=== PATIENT | female | born 1950 | race Caucasian/White ===

== ENCOUNTER 2024-08-29 14:33 | Emergency (ER) | payer MEDICARE, BC, SELFPAY ==
--- NOTE | 2024-08-29 14:55 | PC.NURSE ---
no answer in lobby when called for vital signs and to see provider
--- NOTE | 2024-08-29 15:04 | PC.NURSE ---
no answer in lobby when called for vital signs and to see provider
--- NOTE | 2024-08-29 15:05 | PC.NURSE ---
no answer in lobby when called for vital signs and to see provider
[2024-08-29 15:15] VITALS: BP 135/72; PULSE 60; RESP 18; TEMP 37.1; O2SAT 99; BMI 30.1
--- NOTE | 2024-08-29 15:23 | EKG_ITS ---
[facility] Test Date: 2024-08-29 Pat Name: ORVILLE SOUZA Department: Room: - Gender: Female Hospital Clinic Assistant: : 1950 Requested By: Pramod Mahmood Order Number: [id number] Reading MD: Pramod Mahmood Measurements Intervals [place] Rate: 50 P: 48 MI: 184 QRS: -50 QRSD: 119 T: 15 QT: 466 QTc: 426 Interpretive Statements SINUS BRADYCARDIA POSSIBLE LEFT ATRIAL ENLARGEMENT [-0.1mV P-WAVE IN V1/V2] PATTERN CONSISTENT WITH PULMONARY DISEASE LEFT ANTERIOR FASCICULAR BLOCK [QRS AXIS <= -45, QR IN I, RS IN II] POSSIBLE LEFT VENTRICULAR HYPERTROPHY [VOLTAGE CRITERIA PLUS LAE OR QRS WIDENING] Compared to ECG 05/26/2023 11:11:58 Left anterior fascicular block now present Left-axis deviation no longer present /store/S0/[id number]
--- NOTE | 2024-08-29 15:23 | XR_ITS ---
Examination: CT brain head without contrast. 2-D sagittal coronal reconstructions Date and time of exam:August 29, 2024 1531 hours Comparison May 26, 2023 INDICATIONS: Dizziness syncopal episode lower extremity weakness beginning 2 days ago CTDI: vol (mGy):48.9 DLP: (mGycm):1020 Technique: Multiple CT axial sections of the brain have been obtained, 5 mm slice thickness. Contrast has not been administered. 2-D sagittal, coronal reconstructions have been obtained Low dose protocols were performed. One or more of the following dose reduction techniques were used; automated exposure control, adjustment of the mA and/or KV according to patient size, use of iterative reconstruction technique. Findings: No significant ventricular enlargement Stable bilateral Virchow spaces. Intra-axial or extra-axial hemorrhage density is not seen. No mass effect or midline shift Basal cisterns are not remarkable. Fourth ventricle is midline. Cranial vault intact. Impression: Negative for acute hemorrhage, mass effect or midline shift As clinically warranted, brain MRI follow-up would best assess for acute ischemic change
--- NOTE | 2024-08-29 15:24 | PD.EDRME ---
Rapid Medical Screening Exam [facility] Arrival date/time: 08/29/24 14:33 74-year-old female with a history of hypertension, presents to the emergency room with a chief complaint of left-sided weakness left-sided facial droop headache x 2 days. I have greeted and performed a focused initial assessment of this patient. A comprehensive ED assessment and evaluation of the patient, analysis of all test results, and completion of the medical decision making process will be conducted by additional ED providers. Chief Complaint: Weakness Time Seen by Provider: 08/29/24 15:00 Vital signs: Vital Signs Temperature 98.8 F 08/29/24 15:15 Pulse Rate 60 08/29/24 15:15 Respiratory Rate 18 08/29/24 15:15 Blood Pressure 135/72 H 08/29/24 15:15 Pulse Oximetry (%) 99 08/29/24 15:15 Oxygen Delivery Method Room Air 08/29/24 15:15 Vital signs reviewed by provider: Yes
[2024-08-29 15:49] LABS: Basophils % (Auto) 1 % (0-2.5); Eosinophils # (Auto) 0.2 Thou/mm3 (0.0-0.5); Eosinophils % (Auto) 3 % (0-10); Hematocrit 32.5 % (36.0-46.0); Hemoglobin 10.9 g/dL (12.0-16.0); Immature Granulocytes % (Auto) 0 % (0-0); Immature Granulocytes Auto 0.02 Thou/mm3 (0.00-0.00); Lymphocytes # (Auto) 1.8 Thou/mm3 (1.0-4.8); Lymphocytes % (Auto) 26 % (10-50); Mean Corpuscular HGB Conc 33.5 g/dl (31.0-37.0); Mean Corpuscular Hemoglobin 30.6 pg (25.0-35.0); Mean Corpuscular Volume 91 fL (80-100); Monocytes # (Auto) 0.7 Thou/mm3 (0.0-0.8); Monocytes % (Auto) 9 % (0-12); Neutrophils # (Auto) 4.2 Thou/mm3 (1.8-7.7); Neutrophils % (Auto) 61 % (37-80); Nucleated Red Blood Cell % 0 /100 WBC (0); Platelet Count 253 Thou/mm3 (140-440); RDW Standard Deviation 49.7 fL (36.4-46.3); Red Blood Count 3.56 Miln/mm3 (4.00-5.20); White Blood Count 6.9 Thou/mm3 (3.6-11.0)
[2024-08-29 16:19] LABS: B-Type Natriuretic Peptide 105 pg/mL (0-100)
[2024-08-29 16:24] LABS: Alanine Aminotransferase 15 U/L (10-49); Albumin/Globulin Ratio 1.7 (1.2-2.2); Alkaline Phosphatase 117 U/L (46-116); Anion Gap 5 (7-16); Aspartate Amino Transferase 21 U/L (0-34); BUN/Creatinine Ratio 25 Ratio (12-20); Bilirubin,Total 0.2 mg/dL (0.3-1.2); Blood Urea Nitrogen 25 mg/dL (9-23); Chloride 107 mMol/L (98-107); Estimated Creatinine Clearance 49.3 mL/min (>60); Globulin 2.4 gm/dL (2.3-3.5); Glucose 94 mg/dL (74-106); Osmolality,Calculated 287 (275-295); Potassium 3.9 mMol/L (3.4-5.1); Sodium 142 mMol/L (136-145); Total Protein 6.4 gm/dL (5.7-8.2); Troponin I < 0.020 ng/mL (0.0-0.045); eGFR 59 See Note
--- NOTE | 2024-08-29 16:39 | PD.EDWEAK ---
ED Weakness RME/HPI General Chief complaint: Weakness Stated complaint: EQUILIBRIUM OFF, LEFT FACE TINGLING, HARD TO WALK Time Seen by Provider: 08/29/24 15:00 Arrival date/time: 08/29/24 14:33 Limitations: no limitations RME / HPI RME / HPI Narrative: 08/29/24 14:33 74-year-old female with a history of hypertension, presents to the emergency room with a chief complaint of left-sided weakness left-sided facial droop headache x 2 days. I have greeted and performed a focused initial assessment of this patient. A comprehensive ED assessment and evaluation of the patient, analysis of all test results, and completion of the medical decision making process will be conducted by additional ED providers. DR. SILVA MAIN ED EVALUATION: 74 year old female with history of hypertension and TIA 10 years ago presents to the ED for evaluation of left lower extremity weakness beginning at 04:00 AM yesterday. States she noted the weakness in her leg while walking to the restroom and remaining constant since. Accompanied by her gait feeling off and left facial numbness. Denies headache, change in speech, change in vision, or change in memory. Denies fevers, chills, chest pain, cough, shortness of breath, abdominal pain, n/v/d, or urinary symptoms. Patient mentioned she took three baby Aspirin today. Patient additionally reports she has been told by her neurologist Dr. Grant she has early onset of vascular dementia. Related Data Home Medications ?Medication ?Instructions ?Recorded ?Confirmed duloxetine 60 mg capsule,delayed 60 mg PO QDAY 09/06/18 07/30/24 release (Cymbalta) losartan 100 mg tablet 100 mg PO QDAY 06/18/19 07/30/24 clonidine HCl 0.1 mg tablet 0.1 mg PO BID 06/24/20 07/30/24 aspirin 325 mg tablet 325 mg PO QDAY 07/14/20 07/30/24 diltiazem HCl 180 mg 180 mg PO QDAY 07/14/20 07/30/24 capsule,extended release 24 hr estradiol 0.01% (0.1 mg/gram) 2 g vaginal DIRECTED 11/05/21 07/30/24 vaginal cream (Estrace) oxybutynin chloride 10 mg 10 mg PO QDAY 11/05/21 07/30/24 tablet,extended release 24 hr hydralazine 50 mg tablet mg 02/24/22 07/30/24 Allergies Allergy/AdvReac Type Severity Reaction Status Date / Time No Known Allergies Allergy Verified 08/29/24 14:37 Review of Systems Review of Systems Narrative Review of Systems: GEN: No fever, no chills, no weight loss EYES: No discharge, no visual changes, no pain HEENT: No ear pain, no congestion, no sore throat PULM: No shortness of breath, no cough, no congestion CV: No chest pain, no dyspnea on exertion, no palpitations GI: No nausea, no vomiting, no diarrhea, no pain, no constipation : No frequency, no urgency, no dysuria MUSC/SKEL: No joint pain, no back pain SKIN: No rash PSYCH: No hallucinations, no depression HEME/LYMPH: No easy bleeding or bruising tendencies NEURO: +left lower extremity weakness, +gait feeling off , no headache Past Medical History Past Medical History NEUROLOGIC: Negative Seizures CARDIAC: Positive Hypertension; Negative Congestive Heart Failure RESPIRATORY: Negative Chronic Obstructive Pulmonary Disease (COPD) GENITOURINARY: Negative Renal Disease ENDOCRINE: Negative Diabetes Mellitus Type 1 or Diabetes Mellitus Type 2 OTHER HISTORY: Negative Blood Transfusions or Anesthesia Reactions Surgical History SURGICAL: Positive Gastric Bypass Surgery and Hysterectomy Social History SMOKING STATUS: Never smoker SUBSTANCE USE: does not use ED Exam General Limitations: Present no limitations General appearance: Present alert and in no apparent distress Head Head exam: Present atraumatic, normocephalic and normal inspection Eye Eye exam: Present normal appearance, PERRL and EOMI ENT ENT exam: Present normal exam, normal oropharynx and mucous membranes moist Neck Neck exam: Present normal inspection, full ROM and trachea midline Chest Chest inspection: Present normal inspection and symmetric chest wall rise Respiratory Respiratory exam: Present normal lung sounds bilaterally Cardiovascular Cardiovascular exam: Present regular rate, normal rhythm and normal heart sounds Abdominal Exam Abdominal exam: Present soft and normal bowel sounds Extremities Exam Extremities exam: Present normal inspection and full ROM Back Exam Back exam: Present normal inspection and full ROM Neurological Exam Neurological exam: Present alert, oriented X3 and CN II-XII intact Psychiatric Psychiatric exam: Present normal affect and normal mood Skin Skin exam: Present warm, dry, intact and normal color Course Quality Measures none Orders Category Date Time Status Bedside Blood Glucose NOW Care 08/29/24 17:[address] Screening NOW Care 08/29/24 17:[address] Screening NOW Care 08/29/24 18:19 Completed Library Consultant NOW Care 08/29/24 17:56 Completed Continuous Pulse Oximetry NOW Care 08/29/24 17:56 Completed EKG (ED ONLY) *Do not use* NOW Care 08/29/24 15:23 Completed Insert IV NOW Care 08/29/24 17:56 Completed NIH Stroke Scale now Care 08/29/24 17:56 Completed NPO NOW Care 08/29/24 17:56 Completed Neuro Check Q15MIN Care 08/29/24 17:56 Completed Nurse Swallow Screen x1 Care 08/29/24 17:56 Completed Consult to Neurology / Tele-Neurology Routine Cons 08/29/24 17:[address] angio carotid w head w Stat Exams 08/29/24 18:[address] head/brain wo con Stat Exams 08/29/24 15:23 Completed EKG (ED Only) Stat Exams 08/29/24 15:23 Ordered Alcohol, Blood Medical Stat Lab 08/29/24 15:40 Completed BNP [B-Type Natriuretic Peptide] Stat Lab 08/29/24 15:40 Completed CBC Stat Lab 08/29/24 15:40 Completed Comprehensive Metabolic Panel Stat Lab 08/29/24 15:40 Completed Magnesium Stat Lab 08/29/24 15:40 Completed Partial Thromboplastin Time Stat Lab 08/29/24 15:40 Completed Prothrombin Time with INR Stat Lab 08/29/24 15:40 Completed Troponin I Stat Lab 08/29/24 15:40 Completed Urinalysis Stat Lab 08/29/24 17:30 Completed Urine Culture Stat Lab 08/29/24 17:30 Received Ondansetron Inj [Zofran Inj] Med 08/29/24 17:56 Discontinued 4 mg IV Q4HR PRN Sodium Chloride 0.9% 1000 ml [Ns] 1,000 ml Med 08/29/24 18:00 Discontinued IV Q10H Oxygen Delivery NOW RT 08/29/24 17:56 Completed Vital Signs Vital signs: Vital Signs Temperature 98.8 F 08/29/24 15:15 Pulse Rate 60 08/29/24 15:15 Respiratory Rate 18 08/29/24 15:15 Blood Pressure 135/72 H 08/29/24 15:15 Pulse Oximetry (%) 99 08/29/24 15:15 Oxygen Delivery Method Room Air 08/29/24 15:15 Pulse ox is 99% on room air which is adequate. Weakness MDM Narrative MDM Narrative:: ITameka am scribing for and in the presence of Dr. Silva. Patient data External records reviewed:: [facility] previous records (I reviewed ED visit on 05/26/2023 ) Clinical information provided by:: patient Social determinants that could affect healthcare access:: none Patient has the following chronic illnesses:: HTN, TIA How is presenting disease/condition affected by chronic disease/condition?: exacerbated by Evaluation data The following diagnostics were reviewed and interpreted by me:: lab results and radiology exam(s) Lab and/or radiology exams considered but not ordered:: None Interpretation Summary: Ordering Physician: Pramod Tomas Date of Service: 08/29/24 Procedure(s): CT head/brain wo con Accession Number(s): [id number] cc: Pramod Tomas; Dagoberto Weiss MD~ Examination: CT brain head without contrast. 2-D sagittal coronal reconstructions Date and time of exam:August 29, 2024 1531 hours Comparison May 26, 2023 INDICATIONS: Dizziness syncopal episode lower extremity weakness beginning 2 days ago CTDI: vol (mGy):48.9 DLP: (mGycm):1020 Technique: Multiple CT axial sections of the brain have been obtained, 5 mm slice thickness. Contrast has not been administered. 2-D sagittal, coronal reconstructions have been obtained Low dose protocols were performed. One or more of the following dose reduction techniques were used; automated exposure control, adjustment of the mA and/or KV according to patient size, use of iterative reconstruction technique. Findings: No significant ventricular enlargement Stable bilateral Virchow spaces. Intra-axial or extra-axial hemorrhage density is not seen. No mass effect or midline shift Basal cisterns are not remarkable. Fourth ventricle is midline. Cranial vault intact. Impression: Negative for acute hemorrhage, mass effect or midline shift As clinically warranted, brain MRI follow-up would best assess for acute ischemic change Dictated By: Dagoberto Weiss MD Signed By: <Electronically signed by Dagoberto Weiss MD in OV> 08/29/24 1546 Medications / Prescriptions Medications or Prescriptions considered but not ordered:: None Medication administrations:: Medication Administration History Discontinued Medications Sodium Chloride (Ns) 1,000 mls @ 100 mls/hr IV Q10H KAY Stop: 09/28/24 17:59 Ondansetron HCl (Ondansetron Inj 2 Mg/Ml Inj 2 Ml) 4 mg IV Q4HR PRN PRN Reason: NAUSEA OR VOMITING Stop: 09/28/24 17:55 See above Consultations Consultation(s) initiated? (list below): No Diagnosis Weakness Differential Diagnosis: acute myocardial infarction, anemia, hypoglycemia, sepsis, dehydration and other (CVA, TIA ) Most likely diagnosis given after review of the tests above:: Weakness Admission Indicated Admission indicated?: not indicated Explain why admission is indicated or not indicated:: Patient signed out pending labs Admission Request Was there a request for admission?: No Disposition Plan Disposition Plan: other (specify) (Signed out to Dr. Huang pending labs ) Discharge Plan Plan Patient Disposition: HOME (Self Care) Prescriptions/Referrals Prescriptions/Med Rec: No Action losartan 100 mg tablet 100 mg PO QDAY aspirin 325 mg tablet 325 mg PO QDAY diltiazem HCl 180 mg capsule,extended release 24hr 180 mg PO QDAY oxybutynin chloride 10 mg tablet extended release 24hr 10 mg PO QDAY estradiol [Estrace] 0.01 % (0.1 mg/gram) cream 2 g vaginal DIRECTED Patient Comments: twice a week clonidine HCl 0.1 mg Tablet 0.1 mg PO BID duloxetine [Cymbalta] 60 mg Capsule,Delayed Release(Dr/Ec) 60 mg PO QDAY hydralazine 50 mg tablet Patient Comments: TAKE 1 TABLET BY MOUTH TWICE A DAY WITH FOOD Referrals: Pallavi Aldana NP [Primary Care Provider] - In 1 week Ed Grant MD [Physician] - 08/30/24 Problem List Clinical Impression: Dizziness Patient/Caregiver Discharge Instructions Education Materials: ED Dizziness, Uncertain Cause Additional Instructions: You can continue with your normal full dose aspirin. Dr. Grant would like to see you tomorrow with plans for an MRI. Her contact is provided in the discharge papers and contact office first thing in the morning for follow-up tomorrow. You can return to the emergency department sooner if symptoms worsen or if you notice any new, concerning issues. Print Language: Burkinan Stand Alone Forms: Fern Award Info., Patient Portal Info Letter
[2024-08-29 17:36] LABS: Collection Type, Urine Clean Catch
[2024-08-29 17:45] LABS: Bilirubin,Urine Negative (Negative); Blood,Urine Negative (Negative); Budding Yeast,Urine Present; Clarity,Urine Turbid (Clear/Hazy); Color,Urine Yellow (Lt Yel-Yel); Glucose, Urine Negative (Negative); Ketones,Urine Negative (Negative); Leukocyte Esterase,Urine Positive (Negative); Nitrite,Urine Negative (Negative); PH,Urine 5.5 (5.0-7.0); Protein,Urine Trace (Neg - Trace); RBC,Urine 4 /hpf (0-3); Specific Gravity,Urine 1.031 (1.001-1.035); Squamous Epithelial Cell,Urine 1 /hpf (0-5); WBC,Urine 5 /hpf (0-5)
[2024-08-29 18:21] LABS: INR 0.9 (0.9-1.3); Partial Thromboplastin Time 24.9 Seconds (22.0-36.0); Prothrombin Time 10.3 Seconds (9.0-12.2)
[2024-08-29 18:44] LABS: Alcohol, Blood Medical < 3.0 mg/dL (0-10.0); Magnesium 2.1 mg/dL (1.6-2.6)
[2024-08-29 19:45] VITALS: BP 165/78; PULSE 69; RESP 17; TEMP 36.8; O2SAT 97
--- NOTE | 2024-08-29 19:47 | PD.EDADDENDU ---
Emergency Room Addendum Addendum Narrative: 183: Care assumed from Dr. aGrcia, the previous shift emergency physician. Past medical, surgical, social and family history reviewed. Vitals and home medications reviewed. Results and treatment plan discussed. I will assume the care of the patient at this time and will follow the patient, pending labs. Please refer to the emergency department record for history and examination from initial visit. Labs are within normal limits. CT head is negative for any acute abnormalities. Patient states her weakness has improved. 2024: Discussed case with Dr. Grant from neurology regarding consultation. Discussed patients ED course, exam findings, labs, and radiology results. States to discharge the patient home and have the patient follow-up in her office tomorrow. Patient is agreeable with this plan and is stable to be discharged home.
== END 2024-08-29 21:00 | disposition home or self-care (01) ==
PROVIDERS: Family Medicine; Nurse Practitioner Family; Emergency Provider Emergency Medicine; PCP Nurse Practitioner Family
DX: R42 Dizziness and giddiness (principal); R00.1 Bradycardia, unspecified; I44.4 Left anterior fascicular block; I10 Essential (primary) hypertension; Z86.73 Personal history of transient ischemic attack (TIA), and cerebral infarction without residual deficits
CPT/HCPCS: 36415; 70450; 80053; 80320; 81001; 83735; 83880; 84484; 85025; 85610; 85730; 87086; 93005; 99285; G0480

== ENCOUNTER → 2024-09-02 | Outpatient (CLI) | payer MEDICARE, BC, SELFPAY ==
--- NOTE | 2024-09-02 17:00 | XR_ITS ---
Examination: MRI brain without intravenous contrast. Date and time of exam: September 02, 2024 at 1839 hours, comparison December 21, 2021 INDICATIONS: Onset weakness in the left leg ataxia beginning 5 days ago Technique: Multiple axial and sagittal images of the brain obtained. Siemens high-resolution 1.5 Huyen short bore scanners utilized. Sagittal sections, T1-weighted, TR 500, TE 14, are performed. Axial sections proton-density and T2-weighted have been obtained. Inversion recovery axial images, TR 9, 260, TE 111, TI 2500. Diffusion weighted images, axial sections, TR 4800, TE 128, B value 1000 Axial sections, ADC map, TR 4800, TE 128 Findings: Enlargement of the sella turcica is not present. The optic chiasm and infundibular are not remarkable. Prepontine and interpeduncular cisterns are not enlarged. There is no localized enlargement of the medulla or genet. Fourth ventricle and cerebellar tonsils appear normal in position. No subacute area of hemorrhage density is seen. Mass in the cerebellopontine angle region is not evident. Globes symmetrical. Orbital musculature including medial lateral rectus muscles do not exhibit abnormality. Diffusion-weighted images demonstrate 12 mm focus restricted diffusion right brainstem pontine level. Increased white matter signal prominent Mass effect upon the ventricular system is not identified. 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
== END | disposition home or self-care (01) ==
LOC: SMRI 16:29
PROVIDERS: PCP Nurse Practitioner Family; Referring Provider Psychiatry & Neurology Neurology; Visit Provider Psychiatry & Neurology Neurology
DX: I63.89 Other cerebral infarction (principal)
CPT/HCPCS: 70551

== ENCOUNTER → 2024-11-19 | Outpatient (CLI) | payer MEDICARE, BC, SELFPAY ==
[2024-11-19 16:27] LABS: Basophils # (Auto) 0.1 Thou/mm3 (0.0-0.2); Basophils % (Auto) 1 % (0-2.5); Eosinophils # (Auto) 0.2 Thou/mm3 (0.0-0.5); Eosinophils % (Auto) 4 % (0-10); Hematocrit 34.1 % (36.0-46.0); Hemoglobin 10.9 g/dL (12.0-16.0); Immature Granulocytes Auto 0.02 Thou/mm3 (0.00-0.00); Lymphocytes # (Auto) 1.7 Thou/mm3 (1.0-4.8); Lymphocytes % (Auto) 24 % (10-50); Mean Corpuscular HGB Conc 32.0 g/dl (31.0-37.0); Mean Corpuscular Hemoglobin 28.8 pg (25.0-35.0); Mean Corpuscular Volume 90 fL (80-100); Monocytes # (Auto) 0.7 Thou/mm3 (0.0-0.8); Monocytes % (Auto) 10 % (0-12); Neutrophils # (Auto) 4.2 Thou/mm3 (1.8-7.7); Neutrophils % (Auto) 61 % (37-80); Nucleated Red Blood Cell # 0.00 Thou/mm3 (0.00-0.00); Nucleated Red Blood Cell % 0 /100 WBC (0); Platelet Count 267 Thou/mm3 (140-440); RDW Standard Deviation 49.1 fL (36.4-46.3); Red Blood Count 3.78 Miln/mm3 (4.00-5.20); White Blood Count 6.9 Thou/mm3 (3.6-11.0)
[2024-11-19 16:38] LABS: Glucose Estimated Average 123 mg/dL (80-131); Hemoglobin A1C 5.9 % Hgb (4.8-6.0)
[2024-11-19 16:42] LABS: Ferritin 6 ng/mL (7.3-270.7); Iron 40 mcg/dL (50-170); Percent Iron Saturation 11 % (20-55); Total Iron Binding Capacity 342 mcg/dL (250-425); Unsaturated Iron Binding 302 (225-295)
[2024-11-19 16:44] LABS: Alanine Aminotransferase 11 U/L (10-49); Albumin, Serum 4.0 gm/dL (3.4-4.8); Albumin/Globulin Ratio 1.6 (1.2-2.2); Alkaline Phosphatase 98 U/L (46-116); Anion Gap 8 (7-16); Aspartate Amino Transferase 20 U/L (0-34); BUN/Creatinine Ratio 21 Ratio (12-20); Bilirubin,Total 0.3 mg/dL (0.3-1.2); Blood Urea Nitrogen 23 mg/dL (9-23); Calcium 9.1 mg/dL (8.3-10.6); Calcium (Corrected) 9.1 mg/dL (8.5-10.1); Carbon Dioxide 28.0 mMol/L (20.0-31.0); Chloride 107 mMol/L (98-107); Creatinine (Component) 1.1 mg/dL (0.6-1.3); Free T4 (Free Thyroxine) 1.13 ng/dL (0.89-1.76); Globulin 2.5 gm/dL (2.3-3.5); Glucose 111 mg/dL (74-106); Osmolality,Calculated 289 (275-295); Potassium 4.1 mMol/L (3.4-5.1); Sodium 143 mMol/L (136-145); Thyroid Stimulating Hormone 2.55 uIU/mL (0.55-4.78); Total Protein 6.5 gm/dL (5.7-8.2); eGFR 53 See Note
[2024-11-19 16:54] LABS: Folate 16.29 ng/mL (>5.38); Vitamin B12 231 pg/mL (211-911); Vitamin D 25 Hydroxy Total 37.7 ng/mL (7.3-40.2)
== END | disposition home or self-care (01) ==
LOC: COPL 14:50
PROVIDERS: PCP Nurse Practitioner Family; Referring Provider Nurse Practitioner Family; Visit Provider Nurse Practitioner Family
DX: E56.9 Vitamin deficiency, unspecified (principal); E78.2 Mixed hyperlipidemia; Z13.1 Encounter for screening for diabetes mellitus; I10 Essential (primary) hypertension; Z13.29 Encounter for screening for other suspected endocrine disorder
CPT/HCPCS: 36415; 80053; 82306; 82607; 82728; 82746; 83036; 83540; 83550; 84439; 84443; 85025

== ENCOUNTER → 2024-11-22 | Outpatient (CLI) | payer MEDICARE, BC, SELFPAY ==
[2024-11-22 09:41] LABS: Cardiac Risk Estimate 2.6 RATIO (3.7-5.6); Cholesterol 153 mg/dL (132-200); HDL Cholesterol 60 mg/dL (40-60); LDL Cholesterol,Calculated 73 mg/dL (0-130); Triglycerides 99 mg/dL (30-150)
== END | disposition home or self-care (01) ==
LOC: COPL 08:01
PROVIDERS: PCP Family Medicine; Referring Provider Nurse Practitioner Family; Visit Provider Nurse Practitioner Family
DX: E78.2 Mixed hyperlipidemia (principal); Z13.1 Encounter for screening for diabetes mellitus
CPT/HCPCS: 36415; 80061

== ENCOUNTER → 2024-12-18 | Outpatient (CLI) | payer MEDICARE, BC, SELFPAY ==
--- NOTE | 2024-12-18 13:30 | XR_ITS ---
Examination: Screening digital mammography, bilateral Computer aided detection 3-D breast Tomosynthesis, bilateral Date and time of exam: 12/18/2024, 1:57 PM Comparisons: March 2019 through September 2023 Indications: Screening Technique: Nonmagnified MLO, CC views of the breasts to been obtained, reconstructed from 3-D Tomosynthesis images. R2 computer aided detection program utilized for evaluation of suspicious masses and/or abnormal calcifications. 3-D Tomosynthesis images obtained. Technologist: Findings: There are scattered areas of fibroglandular density. No evidence of abnormal masses or suspicious calcifications. Impression: BI-RADS category 1: Negative findings (within normal) Recommend 1 year follow-up mammogram
== END | disposition home or self-care (01) ==
LOC: CDIM 13:41
PROVIDERS: PCP Nurse Practitioner Family; Referring Provider Nurse Practitioner Family; Visit Provider Nurse Practitioner Family
DX: Z12.31 Encounter for screening mammogram for malignant neoplasm of breast (principal); R92.313 Mammographic fatty tissue density, bilateral breasts
CPT/HCPCS: 77063; 77067

== ENCOUNTER → 2025-01-24 | Outpatient (BNVA) | payer MEDICARE, BC, SELFPAY | END | disposition home or self-care (01) | PROVIDERS: PCP Urology; Referring Provider Urology; Visit Provider Urology | DX: N39.0 Urinary tract infection, site not specified (principal); N32.81 Overactive bladder; N35.92 Unspecified urethral stricture, female; I12.9 Hypertensive chronic kidney disease with stage 1 through stage 4 chronic kidney disease, or unspecified chronic kidney disease; N18.2 Chronic kidney disease, stage 2 (mild); Z87.440 Personal history of urinary (tract) infections | CPT/HCPCS: 81003; 99212; G0463 ==

== ENCOUNTER → 2025-03-06 | Outpatient (CLI) | payer MEDICARE, BC, SELFPAY ==
--- NOTE | 2025-03-06 11:30 | XR_ITS ---
Examination: Retroperitoneal ultrasound, complete Technique: Multiple high resolution grayscale images of the retroperitoneum obtained, including kidneys and bladder. Exam date and time: March 06, 2025, 1129 hours INDICATIONS: Diagnosis chronic kidney disease 3 years, urinary incontinence FINDINGS: Right kidney 9.9 cm cortex 2.1 cm 22 x 25 mm 14 x 11 mm cyst 4 mm lower pole calculus, no hydronephrosis Left kidney 10.2 cm renal cortex 1.7 cm Left renal solid-appearing mass upper kidney 4.5 x 4.7 x 3.7 cm Minimal hydronephrosis IMPRESSION: 4 mm nonobstructing right renal calculus Recommend MRI abdomen kidneys follow-up to confirm solid left renal tumor, 4.5 x 4.7 x 3.7 cm
== END | disposition home or self-care (01) ==
PROVIDERS: PCP Urology; Referring Provider Urology; Visit Provider Urology
DX: N20.0 Calculus of kidney (principal); N18.9 Chronic kidney disease, unspecified
CPT/HCPCS: 76770

== ENCOUNTER → 2025-03-10 | Outpatient (CLI) | payer MEDICARE, BC, SELFPAY ==
[2025-03-10 08:38] LABS: Basophils # (Auto) 0.1 Thou/mm3 (0.0-0.2); Basophils % (Auto) 1 % (0-2.5); Eosinophils # (Auto) 0.2 Thou/mm3 (0.0-0.5); Eosinophils % (Auto) 3 % (0-10); Hematocrit 37.0 % (36.0-46.0); Hemoglobin 12.3 g/dL (12.0-16.0); Immature Granulocytes Auto 0.02 Thou/mm3 (0.00-0.00); Lymphocytes # (Auto) 1.6 Thou/mm3 (1.0-4.8); Lymphocytes % (Auto) 28 % (10-50); Mean Corpuscular HGB Conc 33.2 g/dl (31.0-37.0); Mean Corpuscular Hemoglobin 32.2 pg (25.0-35.0); Mean Corpuscular Volume 97 fL (80-100); Monocytes # (Auto) 0.6 Thou/mm3 (0.0-0.8); Monocytes % (Auto) 10 % (0-12); Neutrophils # (Auto) 3.2 Thou/mm3 (1.8-7.7); Neutrophils % (Auto) 57 % (37-80); Nucleated Red Blood Cell # 0.00 Thou/mm3 (0.00-0.00); Nucleated Red Blood Cell % 0 /100 WBC (0); Platelet Count 241 Thou/mm3 (140-440); RDW Standard Deviation 49.4 fL (36.4-46.3); Red Blood Count 3.82 Miln/mm3 (4.00-5.20); White Blood Count 5.6 Thou/mm3 (3.6-11.0)
[2025-03-10 09:09] LABS: Iron 89 mcg/dL (50-170); Percent Iron Saturation 29 % (20-55); Total Iron Binding Capacity 306 mcg/dL (250-425); Unsaturated Iron Binding 217 (225-295)
== END | disposition home or self-care (01) ==
LOC: COPL 08:02
PROVIDERS: PCP Family Medicine; Referring Provider Nurse Practitioner Family; Visit Provider Nurse Practitioner Family
DX: D50.8 Other iron deficiency anemias (principal)
CPT/HCPCS: 36415; 83540; 83550; 85025